=== PATIENT | male | born 1955 | race Caucasian/White ===

== ENCOUNTER 2018-03-23 08:22 | Observation (INO) | payer BC ==
[2018-03-23] MEDS ORDERED: Nitroglycerin 2% Ointment 1 INCH/1 GM Packet ONE (09:01)
[2018-03-23 09:10] LABS: ALT (SGPT) 20 U/L (8-55); AST (SGOT) 16 U/L (5-34); Albumin 4.5 g/dL (3.4-4.8); Alkaline Phosphatase 45 U/L (40-150); Anion Gap 15 mmol/L (10-20); BUN (Urea Nitrogen) 14 mg/dL (8.4-25.7); Bilirubin, Total 0.4 mg/dL (0.2-1.2); CK (CPK) 66 U/L (30-200); Calc. Creatinine Clearance 0 mL/min (70-130); Calcium 9.5 mg/dL (7.8-10.44); Carbon Dioxide 25 mmol/L (23-31); Chloride 103 mmol/L (98-107); Estimated GFR-MDRD Greater than 90; Glucose 138 mg/dL (80-115); Potassium 3.4 mmol/L (3.5-5.1); Protein, Total 7.5 g/dL (5.8-8.1); Sodium 140 mmol/L (136-145)
[2018-03-23 09:12] LABS: #Lymphocytes 2.1 thou/uL (1.20-3.40); #Monocytes 0.7 thou/uL (0.11-0.59); #Neutrophils 4.1 thou/uL (1.40-6.50); %Basophils 0.4 % (0.0-1.0); %Eosinophils 0.5 % (0.0-10.0); %Lymphocytes 30.2 % (21.0-51.0); %Monocytes 10.4 % (0.0-10.0); %Neutrophils 58.5 % (42.0-75.0); Hemoglobin 16.1 g/dL (14.0-18.0); Mean Corpuscular HGB CONC 33.7 g/dL (32.0-36.0); Mean Corpuscular Hemoglobin 32.4 pg (27.0-31.0); Mean Corpuscular Volume 96.1 fL (78.0-98.0); Mean Platelet Volume 7.2 fL (7.4-10.4); Platelet Count 247 thou/uL (130-400); Red Blood Cell (RBC) Count 4.99 mill/uL (4.70-6.10); White Blood Cell (WBC) Count 7.1 thou/uL (4.8-10.8)
[2018-03-23 09:15] LABS: CKMB 1.2 ng/mL (0-6.6); Troponin I Less than 0.010 ng/mL (< 0.028)
--- NOTE | 2018-03-23 09:41 | RAD ---
PORTABLE CHEST: History: Mid sternal chest pain. Comparison: 11-10-11 FINDINGS: Film is shot in a lordotic fashion. The heart size is felt to be within normal limits considering the technique. Mediastinal structures are unremarkable. The lungs are clear of infiltrate. IMPRESSION: No active intrathoracic disease. POS: C
[2018-03-23] MEDS ORDERED: Acetaminophen 325 MG TAB PO PRN (10:37)
[2018-03-23] MEDS ORDERED: Ondansetron ODT 4 MG TAB PO PRN (10:37)
[2018-03-23] MEDS ORDERED: Zolpidem Tartrate 5 MG TAB PO PRN (10:37)
--- NOTE | 2018-03-23 11:15 | HP ---
PRIMARY CARE PROVIDER: Rick Pagan M.D. Patient referred to [facility] by [facility] for chest pain. HISTORY OF PRESENT ILLNESS: Patient states he started feeling a little anxious and funny yesterday, and then today he has developed heartburn-like anterior chest pain. No relieving factors, no radiati ng factors, no shortness of breath, sweats, etc., lasted hours. He is currently comfortable. PAST MEDICAL HISTORY: Psoriasis, for which he receives an injection once a month; hypertension; dysl ipidemia. CURRENT MEDICATIONS: He takes lisinopril 10 mg a day and a cholesterol medicine that he cannot remem nadine the name of. ALLERGIES: None. PAST SURGICAL HISTORY: None. FAMILY HISTORY: No coronary artery disease. He had 2 aunts with diabetes, both are . SOCIAL HISTORY: He is single, does not smoke. Drinks occasional beer on weekends. CODE STATUS: FULL CODE status. REVIEW OF SYSTEMS: General: No headaches, dizziness, or fainting. Eyes: No double vision, blurred vision, flashing lights. Ears, Nose, and Throat: No ear pain or drainage. No nasal bleeding. No trouble swallowing. Cardiac: No orthopnea or paroxysmal nocturnal dyspnea. Pressure chest pain. R espirations: No cough, wheezing, or asthma. Gastrointestinal: No nausea, vomiting, diarrhea, const ipation, or abdominal pain. Genitourinary: No hematuria or dysuria. Musculoskeletal: Occasional m ild swelling in his ankles. No muscle pain or joint pain. Neurologic: No strokes, seizures, or foc al weakness. Psychiatric: No anxiety or depression. Skin: He has psoriasis on his knees and elbow s, for which he sees a failure analysis engineer. Heme/Lymph: No tender or swollen lymph nodes in axilla, ingui nal, or cervical area. PHYSICAL EXAMINATION: GENERAL: Alert, oriented, cooperative, pleasant gentleman, in no distress. VITAL SIGNS: Blood pressure 138/92, pulse 69, respirations 18, temperature 98.3. HEENT: Examination of his head, eyes, ears, nose, and throat, pupils equal, round, and reactive to l ight. Extraocular movements are intact. Sclerae white. Tympanic membranes are clear. Nose clear. Throat is clear. Dental hygiene is good. NECK: Supple, without jugular venous distention, adenopathy, or thyromegaly. CHEST: Clear to auscultation and percussion. HEART: Regular rate and rhythm. First and second heart sounds are clear. There are no appreciated murmurs or gallops. ABDOMEN: Soft, bowel sounds are normal. There is no hepatosplenomegaly, no mass, no rebound, no bru its. EXTREMITIES: Reveal no cyanosis, clubbing, or edema. PULSES: Carotid, radial, femoral, and dorsalis pedis pulses intact. SKIN: Warm and dry without bruises or rash except for some mild psoriatic patches on his knees. HEME/LYMPH: No tender or swollen lymph nodes in axilla, inguinal, or cervical area. No petechial he morrhages in his mucous membranes or nails. NEUROLOGICAL: Cranial nerves II-XII are intact. Deep tendon reflexes symmetric. Moves all extremit ies. X-RAY FINDINGS: EKG normal, read by me. Chest x-ray: No cardiomegaly, CHF, or infiltrate, read by me. LABORATORY DATA: CBC essentially normal. Comp metabolic profile, potassium 3.4, glucose 138, otherw ise normal. CK-MB normal. Troponin normal. ADMITTING DIAGNOSES: Chest pain, most consistent with gastroesophageal reflux disease; hypertension, uncontrolled; dyslipidemia; psoriasis. PLAN: Aspirin, serial enzymes x3. Exercise cardiac stress test.
[2018-03-23 11:51] VITALS: BMI 44.2
[2018-03-23 12:34] LABS: Troponin I Less than 0.010 ng/mL (< 0.028)
[2018-03-23 15:38] LABS: Troponin I Less than 0.010 ng/mL (< 0.028)
--- NOTE | 2018-03-23 17:13 | PDOC.EVN ---
Event Note - Event Note Event Note: only tolerated 2 min on treadmill, cardiolyte test ordered
--- NOTE | 2018-03-23 17:52 | DIS ---
DATE OF ADMISSION: 03/23/2018 DATE OF DISCHARGE: 03/23/2018 PRIMARY CARE PROVIDER: Rick Pagan M.D. DISCHARGE DISPOSITION: Discharged home. FINAL DIAGNOSES: most likely related to gastroesophageal reflux disease, hypertension, dyslipi demia, psoriasis, gastroesophageal reflux disease. DISCHARGE MEDICATIONS: Same as home medicines, nifedipine 30 mg a day, omeprazole 20 mg a day, lisin opril/HCTZ 20/12.5 one a day, aspirin 81 mg a day. ALLERGIES: None. CODE STATUS: FULL. PENDING AT THE TIME OF DISCHARGE: Nothing. DIET: Heart healthy. HOSPITAL COURSE: The patient admitted through the Emergency Room with what he described as heartburn -like epigastric to lower chest pain. Laboratory was unremarkable. Cardiac enzymes normal x3. CBC unremarkable. EKG unrevealing for any ST-T abnormality, etc. A exercise stress test was done, which is normal. He had no pain during the test. I have discussed the findings with him. I have discuss ed adding Maalox or Pepcid complete with breakthrough heartburn-like symptoms while on the omeprazole . I have asked him to see his primary care physician in 1 week. CONSULTATIONS: None. PROCEDURES: None.
[2018-03-23] MEDS: Famotidine 20 MG TAB PO SCH (19:37)
[2018-03-24] MEDS ORDERED: hydrALAZINE 20 MG/ML VIAL SLOW IVP PRN (05:58)
[2018-03-24] MEDS: Famotidine 20 MG TAB PO SCH (08:37)
[2018-03-24] MEDS ORDERED: Lisinopril/Hydrochlorothiazide 20 mg/12.5 mg Tablet PO SCH (09:00)
[2018-03-24] MEDS ORDERED: NIFEdipine XL 30 MG TAB PO SCH (09:00)
[2018-03-24] MEDS ORDERED: Aspirin 325 MG TAB PO SCH (09:00)
[2018-03-24] MEDS ORDERED: Aspirin 81 mg Enteric Coated Tablet PO SCH (09:00)
[2018-03-24 12:25] VITALS: BP 161/93; TEMP 97.9
--- NOTE | 2018-03-24 13:25 | NM ---
RADIONUCLIDE STRESS AND REST MYOCARDIAL PERFUSION SCAN WITH CT ATTENUATION CORRECTION AND SPECT IMAGI NG WITH LEFT VENTRICULAR WALL MOTION EVALUATION AND EJECTION FRACTION: HISTORY: Chest pain. FINDINGS: Lexiscan protocol. There is homogeneous uptake of radiotracer throughout the left ventricular myocard ium. No focal perfusion defect or reversibility. QGS analysis of gated SPECT images shows no focal wall motion abnormalities, although there is signif icant global hypokinesis. Ejection fraction is calculated at 42%. IMPRESSION: 1. Normal perfusion study showing no evidence of ischemia. 2. Depressed ejection fraction of 42%, without focal wall motion abnormality. POS: TRACI
--- NOTE | 2018-03-24 14:14 | PDOC.PN ---
- Subjective Encounter Start Date: 03/24/18 Encounter Start Time: 14:16 Subjective: no chest pain - Objective Resuscitation Status: Resuscitation Status FULL:Full Resuscitation MAR Reviewed: Yes Vital Signs & Weight: Vital Signs (12 hours) Temp Pulse Resp BP BP Pulse Ox 03/24/18 12:19 97.9 F 91 18 161/93 H 99 03/24/18 11:39 72 03/24/18 08:37 72 03/24/18 07:41 98.4 F 72 18 172/82 H 99 03/24/18 03:30 97.8 F 69 16 177/89 H 97 Weight Weight 282 lb 10.122 oz I&O: 03/23/18 03/24/18 03/25/18 06:59 06:59 06:59 Intake Total 1580 Balance 1580 Result Diagrams: 03/23/18 08:43 03/23/18 08:43 Phys Exam - Physical Examination Neck: no JVD Respiratory: clear to auscultation bilateral Cardiovascular: RRR, no significant murmur Gastrointestinal: soft, non-tender, positive bowel sounds Musculoskeletal: no edema Dx/Plan (1) Cardiomyopathy Code(s): I42.9 - CARDIOMYOPATHY, UNSPECIFIED Status: Acute Qualifiers: Cardiomyopathy type: unspecified Qualified Code(s): I42.9 - Cardiomyopathy , unspecified (2) Chest pain Code(s): R07.9 - CHEST PAIN, UNSPECIFIED Status: Acute Qualifiers: Chest pain type: unspecified Qualified Code(s): R07.9 - Chest pain, unspecified (3) Dyslipidemia Code(s): E78.5 - HYPERLIPIDEMIA, UNSPECIFIED Status: Acute (4) GERD (gastroesophageal reflux disease) Code(s): K21.9 - GASTRO-ESOPHAGEAL REFLUX DISEASE WITHOUT ESOPHAGITIS Status: Acute Qualifiers: Esophagitis presence: esophagitis presence not specified Qualified Code(s) : K21.9 - Gastro-esophageal reflux disease without esophagitis (5) HTN (hypertension) Code(s): I10 - ESSENTIAL (PRIMARY) HYPERTENSION Status: Acute Qualifiers: Hypertension type: essential hypertension Qualified Code(s): I10 - Essential (primary) hypertension - Plan cont current plan of care stress test , no ischemia, EF 42 % -: consult cardiology * .
--- NOTE | 2018-03-24 16:06 | CON ---
DATE OF CONSULTATION: 03/24/2018 CARDIOLOGY CONSULTATION REASON FOR CONSULTATION: Chest pain. HISTORY OF PRESENT ILLNESS: Mr. Montez is a very pleasant 62-year-old gentleman who come s to the hospital for evaluation of heartburn. He has had heartburn for many years. He takes pills for this. He has a diagnosis of psoriasis for many years now and he recently has been getting inject ions every month for the psoriasis and is doing quite well from the skin standpoint. He had his deci sanju to give some shots mention to him that psoriasis can be associated with coronary artery disease and he should be checked out by drawing supervisor at some point in his life. He started thinking about it and got very anxious about it and because he has heartburn every now and then he decided to come int o the hospital for evaluation. He was admitted for rule out and had negative troponins and had a str ess test that showed no evidence of reversible ischemia; however, his EF was reduced at 42% with no r egional wall motion abnormalities. Cardiology is being consulted for further evaluation of this. On my evaluation, Mr. Montez is pain free. He admits to having some heartburn symptoms when he do es some exertion at work, but it has been this way for a long time. PAST MEDICAL HISTORY: 1. Psoriasis. 2. Hypertension. 3. Hyperlipidemia. OUTPATIENT MEDICATIONS: Include, 1. Lisinopril/hydrochlorothiazide 20/12.5 mg daily. 2. Aspirin 81 mg a day. 3. Omeprazole 20 mg b.i.d. 4. Nifedipine 30 mg a day. ALLERGIES: No known drug allergies. PAST SURGICAL HISTORY: None. FAMILY HISTORY: Noncontributory. SOCIAL HISTORY: No tobacco or drugs. He has social alcohol use. REVIEW OF SYSTEMS: A 12-point review of systems was done and it is all negative unless stated in the history of present illness. PHYSICAL EXAMINATION: VITAL SIGNS: Temperature 97.9, pulse 91, respiration rate 18, satting 99% on room air, blood pressur e 160/93. GENERAL: Awake, alert, oriented x3, in no distress. HEENT: Normocephalic, atraumatic. NECK: Supple. LUNGS: Clear. CARDIOVASCULAR: S1, S2, no S3, S4, no murmurs. ABDOMEN: Soft. Positive bowel sounds. EXTREMITIES: Trace edema. SKIN: Warm and dry. LABORATORY DATA: Laboratory work is reviewed. CBC is unremarkable. Chemistries unremarkable except for potassium 3.4, glucose 138. Troponin I is negative x3 completely undetectable. CK-MB was marily l. Albumin of 4.5. IMAGING DATA: Nuclear stress test was reviewed. He had a normal perfusion study with no reversible ischemia, EF was estimated at 42% with no regional wall motion abnormalities. EKG was reviewed, nonspecific ST changes. ASSESSMENT AND PLAN: 1. Reduced ejection fraction on stress test. 2. Heartburn. 3. Gastroesophageal reflux disease. 4. Psoriasis. PLAN: 1. We will get an echocardiogram if the echo shows a normal LV function, he should be able to be dis charged home and we will follow up with him as an outpatient in 1 month. 2. If the echo shows reduced EF, he is stable at this time and he would like to hold off on any furt her evaluations or testing as he has a mother who is sick in [place] and he has to get to her. S he is admitted in the hospital and also has a daughter who was admitted in the hospital. She is dami g through a lot at that time. I think this would be reasonable to do a workup as an outpatient. We would set him up for heart catheterization in the future if his echo were to show a reduced EF. Othe rwise, further recommendations results of echocardiogram. This is in order, a stat is about to be do ne.
[2018-03-24] MEDS ORDERED: Regadenoson 0.4 MG/5 ML SYRINGE ONE (17:46)
--- NOTE | 2018-03-24 19:18 | DIS ---
DATE OF ADMISSION: 03/23/2018 DATE OF DISCHARGE: 03/24/2018 PRIMARY CARE PROVIDER: Rick Pagan M.D. FINAL DIAGNOSES: Chest pain, cardiomyopathy, dyslipidemia, gastroesophageal reflux disease, hyperten sanju. DISCHARGE MEDICATIONS: Nifedipine 30 mg a day, omeprazole 20 mg a day, lisinopril/HCT 20/12.5 one a day, aspirin 81 mg a day. CODE STATUS: FULL. DIET: Heart healthy. ALLERGIES: None. PENDING AT THE TIME OF DISCHARGE: The patient will have a cardiac catheterization as an outpatient b y Dr. Cordero. CONSULTATIONS: Dr. Kirby Cordero, Cardiology. PROCEDURES: None. HOSPITAL COURSE: The patient admitted to the emergency room, what he describes heartburn-like epigas tric to lower chest pain. Enzymes normal x3. EKG was unrevealing for abnormality. A stress test wa s done which was read as normal; however, it was noted that he only went approximately 2 minutes and a chemical Cardiolite was subsequently ordered. His discharge was canceled. His Cardiolite stress t est reveals an LVEF of 42% with no evidence of ischemic change. Dr. Cordero was consulted. An echoca rdiogram was obtained. Dr. Cordero is allowing the patient to be discharged, which he wishes to be to follow up with him in his office for outpatient cardiac catheterization in the near future. Followup is to contact Dr. Cordero's office next week to obtain followup to arrange the cardiac cathet erization. Patient to return to the emergency room if he has worsening chest pain.
== END 2018-03-24 18:05 | disposition home or self-care (01) ==
LOC: ERS 08:22 → 2SW 10:32 → 2SE 14:22 → 2SW 14:22
PROVIDERS: ADMIT Internal Medicine; ATTEND Internal Medicine
DX: R07.9 Chest pain, unspecified (principal); I42.9 Cardiomyopathy, unspecified; E78.5 Hyperlipidemia, unspecified; K21.9 Gastro-esophageal reflux disease without esophagitis; L40.9 Psoriasis, unspecified; I10 Essential (primary) hypertension; Z79.82 Long term (current) use of aspirin; Z79.899 Other long term (current) drug therapy
CPT/HCPCS: 36415; 71045; 78452; 80053; 82550; 82553; 84484; 85025; 93005; 93017; 93306; 94760; 96374; A9500; G0378; J0360; J2785

== ENCOUNTER 2020-10-01 19:48 | Inpatient (IN) | payer BC ==
[2020-10-01] MEDS ORDERED: Ondansetron PF 4 MG/2 ML Vial ONE (20:13)
[2020-10-01 23:17] LABS: Lactic Acid 1.1 mmol/L (0.5-2.2)
== END 2020-10-02 02:20 | disposition short-term general hospital (02) | DRG 390 ==
LOC: ERS 19:48 → ERHOLD 20:06
PROVIDERS: ADMIT Surgery; ATTEND Surgery
DX: K56.609 Unspecified intestinal obstruction, unspecified as to partial versus complete obstruction (principal); E78.5 Hyperlipidemia, unspecified; E78.00 Pure hypercholesterolemia, unspecified; I10 Essential (primary) hypertension; F17.210 Nicotine dependence, cigarettes, uncomplicated
CPT/HCPCS: 36415; 71045; 83605; 96374; J2405